=== PATIENT | male | born 1955 | race Caucasian/White ===

== ENCOUNTER → 2017-04-17 | Day surgery (SDC) | payer MEDICAID ==
[~2017-04-17] VITALS: Ht 175.3 cm; Wt 108.9 kg
[2017-04-17 09:52] VITALS: BP 150/84
[2017-04-17 10:14] VITALS: BP 150/84
[2017-04-17 10:18] VITALS: BP 150/84
--- NOTE | 2017-04-17 10:26 | Procedure Note ---
Procedure detail Date of procedure: 04/17/17 Anesthesiologist: Kd Brewster Complications: None Pre-procedure diagnosis: Degenerative disease lumbar spine multiple levels. Lumbar facet arthropathy. Multilevel lumbar spondylosis. Post-procedure diagnosis: Same. Indications for procedure: Very pleasant 61-year-old white male we are treating for low back pain secondary to degenerative disease lumbar spine multiple levels. Lumbar facet arthropathy. Lumbar spondylosis. He responded significantly in terms of his RIGHT lumbar back pain after receiving medial branch block L4-5, L5-S1 on the RIGHT. He is here today for second round same levels. Procedure detail: Informed consent was obtained and the risk and benefits of the procedure was explained to the patient. Patient was taken to the procedure room where noninvasive monitors were placed, including noninvasive blood pressure cuff as well as pulse oximeter. The area over the lumbar spine was cleansed using chlorhexidine as a cleansing solution. I anesthetized the skin and subcutaneous tissues with 1% Lidocaine. I placed 22-gauge spinal needles into the facet joint / medial branches of RIGHT L4-5, L5-S1. Needle placement was confirmed with fluoroscopy. After confirmation of needle placement, each site was injected with 1 mL of 1% lidocaine and 0.25 % Marcaine and 10 mg of Depo-Medrol. A total of 80 mg of depo medrol was used for bilateral medial branch blocks of RIGHT L4-5, L5- S1. Patient tolerated the procedure without difficulty. There were no complications. Plan and disposition: Patient was reevaluated 10 minutes post procedure. He is doing very well. He reports pain is much better in the lumbar spine on the RIGHT side and flexion, extension, LEFT and RIGHT rotation. at [id number]
[2017-04-17 10:30] VITALS: BP 143/98
[2017-04-17 10:55] VITALS: BP 150/84
== END ==
LOC: PM 09:44
PROC: 3E0T3BZ Introduction of Anesthetic Agent into Peripheral Nerves and Plexi, Percutaneous Approach (ICD-10-PCS; principal; 2017-04-17)
PROC: 3E0T33Z Introduction of Anti-inflammatory into Peripheral Nerves and Plexi, Percutaneous Approach (ICD-10-PCS; 2017-04-17)
PROC: BR161ZZ Fluoroscopy of Lumbar Facet Joint(s) using Low Osmolar Contrast (ICD-10-PCS; 2017-04-17)
DX: M51.36 Other intervertebral disc degeneration, lumbar region (principal); M12.88 Other specific arthropathies, not elsewhere classified, other specified site; M47.896 Other spondylosis, lumbar region